=== PATIENT | male | born 1975 | race Caucasian/White ===

== ENCOUNTER 2022-01-16 23:46 | Inpatient (IN) ==
[2022-01-17] MEDS ORDERED: SODIUM CHLORIDE 0.9% 1,000 ML IV STA (00:04)
[2022-01-17 00:18] LABS: Basophils % 0.4 % (0.0-0.8); Eosinophils # 0.1 10*3/uL (0.0-0.87); Eosinophils % 2.9 % (0.00-10.9); Hematocrit 45.2 VOL% (42.0-52.0); Immature Granulocytes % 0.2 %; Immature Granulocytes Absolute 0.01 #; Lymphocytes # 1.8 10*3/uL (1.4-4.0); Lymphocytes % 37.9 % (21.2-54.2); Mean Corpuscular HGB Conc 35.4 GM/DL (32-36); Mean Platelet Volume 8.4 FL (9.6-12.0); Monocytes # 0.5 10*3/uL (0.11-0.8); Monocytes % 10.9 % (1.7-12.7); Neutrophils % 47.7 % (38.7-73.9); Platelet Count 206 T/CUMM (130-400); Red Blood Count 5.32 MC/CUMM (3.8-5.5); Red Cell Distribution Width 12.9 % (9.3-17.3); White Blood Count 4.8 T/CUMM (4-12)
[2022-01-17 00:33] LABS: Albumin 3.7 G/DL (3.4-5.0); Bilirubin,Total 0.6 MG/DL (0.20-1.00); Calcium 9.1 MG/DL (8.5-10.1); Osmolality,Calculated 274.7 MOS/KG (273-304); Potassium 3.1 MMOL/L (3.5-5.1); Total Protein 7.5 G/DL (6.4-8.2)
[2022-01-17 00:37] LABS: ABG Base Excess 0.8 MMOL/L (-2.5-2.5); ABG Oxygen Saturation 91.9 % (95-100); ABG PCO2 38.3 MM HG (35-48); ABG PH 7.423 (7.35-7.45); ABG PO2 63.8 MM HG (80-95); ABG TCO2 20.9 MMOL/L (23-27)
[2022-01-17] MEDS ORDERED: POTASSIUM CHLORIDE 20 MEQ TABLET PO STA (00:37)
[2022-01-17] MEDS ORDERED: ONDANSETRON 4 MG/2 ML VIAL IV ONE (00:47)
[2022-01-17] MEDS ORDERED: ACETAMINOPHEN 325 MG TABLET PO PRN (02:03)
[2022-01-17] MEDS ORDERED: GLUCAGON 1 MG VIAL IM PRN (02:03)
[2022-01-17] MEDS ORDERED: DEXTROSE 50% 25 GM/50 ML VIAL IV PRN (02:03)
[2022-01-17] MEDS ORDERED: ONDANSETRON 4 MG/2 ML VIAL IV PRN (02:03)
[2022-01-17] MEDS ORDERED: DEXTROSE 10% 250 ML BAG IV PRN (02:03)
[2022-01-17] MEDS ORDERED: MELATONIN 3 MG TABLET PO PRN (02:12)
[2022-01-17 02:43] LABS: Ferritin 343.1 ng/mL (26-388)
[2022-01-17] MEDS: DEXAMETHASONE 4 MG/1 ML VIAL IV SCH ×2 (03:06→09:41)
[2022-01-17] MEDS: AZITHROMYCIN INJ 500 MG in SODIUM CHLORIDE 0.9% 250 ML IV SCH (03:09)
[2022-01-17] MEDS ORDERED: ALBUTEROL INHALER 18 GM INH PRN (03:16)
[2022-01-17] MEDS ORDERED: REMDESIVIR 200 MG in SODIUM CHLORIDE 0.9% 210 ML IV ONE (05:00)
[2022-01-17] MEDS: cefTRIAXone 1,000 MG in SODIUM CHLORIDE 0.9% 100 ML IV SCH (05:07)
[2022-01-17] MEDS: PANTOPRAZOLE 40 MG TABLET PO SCH (08:49)
[2022-01-17] MEDS: ASCORBIC ACID 500 MG TABLET PO SCH ×2 (08:49→20:51)
[2022-01-17] MEDS: FAMOTIDINE 20 MG TABLET PO SCH ×2 (08:49→20:50)
[2022-01-17] MEDS: CETIRIZINE 10 MG TABLET PO SCH (08:50)
[2022-01-17] MEDS ORDERED: ZINC GLUCONATE 50 MG TABLET PO SCH (09:00)
[2022-01-17] MEDS ORDERED: LORATADINE 10 MG TABLET PO SCH (09:00)
[2022-01-17] MEDS ORDERED: CHOLECALCIFEROL 1,000 UNIT TABLET PO SCH (09:00)
[2022-01-17] MEDS ORDERED: POTASSIUM CHLORIDE 20 MEQ TABLET PO ONE (09:19)
[2022-01-17] MEDS: CHOLECALCIFEROL 5,000 UNIT TABLET PO SCH ×2 (09:40→20:50)
[2022-01-17] MEDS: LACTATED RINGERS 1,000 ML IV SCH ×2 (10:21→20:51)
[2022-01-17] MEDS: ZINC SULFATE 220 MG CAPSULE PO SCH (10:46)
[2022-01-17 13:09] LABS: Calcium 8.9 MG/DL (8.5-10.1); Osmolality,Calculated 279.5 MOS/KG (273-304); Potassium 4.2 MMOL/L (3.5-5.1)
[2022-01-17] MEDS ORDERED: RIVAROXABAN 20 MG TABLET PO SCH (21:00)
[2022-01-17] MEDS ORDERED: LATANOPROST 0.005% OPH SOLN 2.5 ML BOTTLE BOTH EYES SCH (21:00)
[2022-01-17] MEDS ORDERED: MELATONIN 3 MG TABLET PO SCH (21:00)
[2022-01-18] MEDS: AZITHROMYCIN INJ 500 MG in SODIUM CHLORIDE 0.9% 250 ML IV SCH (03:06)
[2022-01-18] MEDS: cefTRIAXone 1,000 MG in SODIUM CHLORIDE 0.9% 100 ML IV SCH (04:46)
[2022-01-18 05:54] LABS: Hematocrit 41.1 VOL% (42.0-52.0); Hemoglobin 14.3 GM/DL (14.0-18.0); Immature Granulocytes % 0.3 %; Immature Granulocytes Absolute 0.02 #; Lymphocytes # 1.6 10*3/uL (1.4-4.0); Lymphocytes % 24.6 % (21.2-54.2); Mean Corpuscular HGB Conc 34.8 GM/DL (32-36); Mean Corpuscular Volume 87.4 FL (87-102); Mean Platelet Volume 8.5 FL (9.6-12.0); Monocytes # 0.6 10*3/uL (0.11-0.8); Monocytes % 8.6 % (1.7-12.7); Neutrophils % 66.5 % (38.7-73.9); Platelet Count 216 T/CUMM (130-400); Red Cell Distribution Width 12.7 % (9.3-17.3); White Blood Count 6.4 T/CUMM (4-12)
[2022-01-18 06:18] LABS: Osmolality,Calculated 280.4 MOS/KG (273-304); Potassium 3.9 MMOL/L (3.5-5.1)
[2022-01-18 06:34] LABS: Ferritin 274.7 ng/mL (26-388)
[2022-01-18] MEDS ORDERED: REMDESIVIR 100 MG in SODIUM CHLORIDE 0.9% 100 ML IV SCH (09:00)
[2022-01-18] MEDS: LACTATED RINGERS 1,000 ML IV SCH (09:32)
[2022-01-18] MEDS: DEXAMETHASONE 4 MG/1 ML VIAL IV SCH (09:33)
[2022-01-18] MEDS: FAMOTIDINE 20 MG TABLET PO SCH (09:33)
[2022-01-18] MEDS: ASCORBIC ACID 500 MG TABLET PO SCH (09:34)
[2022-01-18] MEDS: PANTOPRAZOLE 40 MG TABLET PO SCH (09:34)
[2022-01-18] MEDS: CETIRIZINE 10 MG TABLET PO SCH (09:34)
[2022-01-18] MEDS: CHOLECALCIFEROL 5,000 UNIT TABLET PO SCH (09:34)
[2022-01-18] MEDS: ZINC SULFATE 220 MG CAPSULE PO SCH (09:34)
[2022-01-18 18:18] VITALS: BP 126/68
== END 2022-01-18 16:00 | disposition home or self-care (01) | DRG 179 ==
LOC: EDUNIT# → N.ED 23:46 → N.EDINP 01-17 02:03 → N.5E 01-17 12:10
PROVIDERS: ADMIT Internal Medicine; ATTEND Internal Medicine